=== PATIENT | male | born 1955 | race Caucasian/White ===

== ENCOUNTER 2016-06-19 09:51 | Day surgery (SDC) | payer BC ==
[~2016-06-19 09:51] MED LIST: Buffered Lidocaine 1% SYR 3ML* 3 ML/SYR SYRINGE INTRADERM ONE; Heparin VIAL(*) 5000 UNITS/ML VIAL (FIVE THOUSAND) ONE; Ketorolac INJ* 30 MG/ML 1 ML VIAL ONE; ceFAZolin 2 GM PREMIX(*) 2 GM/50 ML BAG IVPB ONE
[2016-06-19] MEDS ORDERED: Bupivacaine 0.5% W/EPI SDV* 30 ML VIAL ONE (10:23)
[2016-06-19] MEDS ORDERED: Lidocaine 1% INJ* 10 MG/ML 30 ML SDV ONE (10:23)
[2016-06-19] MEDS ORDERED: Midazolam* 1 MG/ML 5 ML VIAL (5 MG) ONE ×2 (10:44→11:02)
[2016-06-19] MEDS ORDERED: fentaNYL* 50 MCG/ML 2 ML VIAL (100 MCG VIAL) ONE ×2 (10:51→11:06)
[2016-06-19] MEDS ORDERED: Ondansetron INJ* 2 MG/ML VIAL IV PRN (11:06)
[2016-06-19] MEDS ORDERED: fentaNYL* 50 MCG/ML 2 ML VIAL (100 MCG VIAL) IV PRN (11:06)
[2016-06-19] MEDS ORDERED: HYDROmorphone* 1 MG/ML 1 ML SYR IV PRN (11:06)
[2016-06-19] MEDS ORDERED: diPHENhydraMINE IV* 50 MG/ML 1 ml VIAL (BENADRYL) IV PRN (11:06)
[2016-06-19 12:21] VITALS: BP 92/50
--- NOTE | 2016-06-19 13:45 | OP ---
Amended report to correct surgeon's name. CC: Eddi Rolle MD; Adalid Pérez MD OPERATIVE REPORT: DATE OF OPERATION: 06/19/16 DATE OF : 57 SURGEON: Eddi Rolle MD MILIEU COORDINATOR: Rae Conway NP. ANESTHESIOLOGIST: Arsen Ma MD ANESTHESIA: LMAC. PRE-OP DIAGNOSIS: Right inguinal hernia. POST-OP DIAGNOSIS: Right inguinal hernia. OPERATIVE PROCEDURE: Open repair of right inguinal hernia with mesh. DESCRIPTION OF PROCEDURE: The patient was supine on the operating table. After adequate intravenous sedation, compression stockings, Dana Hugger warmer, and intravenous antibiotics, the right right groin was clipped and prepped with antiseptic, draped in a sterile fashion. Local infiltrative anesthesia was administered and an approximately 4-cm incision was created and carried down to the external oblique opened in the direction of its fibers. Cord structures were encircled with a Demetrice drain. There was an indirect space hernia identified. This was dissected free and reduced and a cone mesh plug was placed into the internal ring, sutured at the transversus abdominis and at the inguinal ligament using 2-0 Polysorb. Second piece of mesh was placed over the inguinal floor, sutured at the tubercle. Tails were split, brought around the cord structures and tacked down laterally. External oblique was closed over the top with 2-0 Polysorb, Arash's with 3-0 Polysorb, skin with 4-0 Surgipro followed by a sterile dressing. He tolerated the procedure well. He was brought to Recovery in good condition. No complications. No drains. No pathologic specimens. Sponge and instrument counts correct. Estimated blood loss 10 mL. [id number]/[facility] #: [id number] [facility]
== END 2016-06-19 12:54 | disposition home or self-care (01) ==
LOC: OR 09:51
PROVIDERS: ATTEND Surgery
DX: K40.90 Unilateral inguinal hernia, without obstruction or gangrene, not specified as recurrent (principal); F17.200 Nicotine dependence, unspecified, uncomplicated; Z86.718 Personal history of other venous thrombosis and embolism; Z86.711 Personal history of pulmonary embolism
CPT/HCPCS: C1781; J0690; J1644; J1885; J2001; J2250; J3010

== ENCOUNTER 2017-02-11 00:34 | Emergency (ER) | payer BC, MEDICARE ==
[2017-02-11] MEDS ORDERED: Ibuprofen TAB* 800 MG PO ONE (01:24)
[2017-02-11] MEDS ORDERED: Clindamycin CAP* 150 MG PO ONE (01:25)
[2017-02-11 02:02] VITALS: BP 120/71
--- NOTE | 2017-02-11 07:53 | RAD ---
INDICATION: Right hand injury. TECHNIQUE: 4 views of the right hand were obtained. FINDINGS: There is a transverse slightly impacted fracture of the distal metaphysis of the fourth metacarpal. No other fractures are seen. Joint spaces appear maintained. IMPRESSION: TRANSVERSE SLIGHTLY IMPACTED FRACTURE OF THE DISTAL FOURTH METACARPAL.
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
== END 2017-02-11 02:01 | disposition home or self-care (01) ==
LOC: ED 00:34
DX: S62.394A Other fracture of fourth metacarpal bone, right hand, initial encounter for closed fracture (principal); Y04.0XXA Assault by unarmed brawl or fight, initial encounter; F17.200 Nicotine dependence, unspecified, uncomplicated
CPT/HCPCS: 99282; A9270-GY